=== PATIENT | male | born 2000 | race Asian ===

== ENCOUNTER 2021-01-31 12:36 | Emergency (ER) | payer MEDICAID ==
[~2021-01-31] VITALS: Ht 172.7 cm; Wt 86.2 kg
[2021-01-31 12:50] VITALS: BP 134/80
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
[2021-01-31] MEDS ORDERED: CYCL5TAB PO (13:09)
[2021-01-31] MEDS ORDERED: IBUP-1957 PO (13:09)
[2021-01-31] MEDS ORDERED: KETOROLAC TROMETHAMINE INJ 30 MG/ML VIAL ONE (13:38)
[2021-01-31] MEDS: KETOROLAC TROMETHAMINE INJ 30 MG/ML VIAL IM ONE (13:41)
--- NOTE | 2021-01-31 13:46 | NUR ---
Patient discharged to home in stable condition. Written and verbal after care instructions given. Patient verbalizes understanding of instruction.
== END 2021-01-31 13:47 | disposition home or self-care (01) ==
LOC: ER 12:40
DX: S13.4XXA Sprain of ligaments of cervical spine, initial encounter (principal); V49.49XA Driver injured in collision with other motor vehicles in traffic accident, initial encounter; Y93.89 Activity, other specified; Y92.413 State road as the place of occurrence of the external cause; Y99.8 Other external cause status
CPT/HCPCS: 96372; 99283; J1885